=== PATIENT | male | born 1990 | race Hispanic/Latino ===

== ENCOUNTER 2022-09-07 23:09 | Emergency (ER) | payer SELFPAY ==
[2022-09-07 23:20] VITALS: BP 135/77; PULSE 66; RESP 16; TEMP 35.9; O2SAT 99; BMI 30.3
--- NOTE | 2022-09-07 23:33 | ED_ITS ---
HPI - General Adult General Chief complaint: Abdominal Pain Stated complaint: abd pain Time Seen by Provider: 09/07/22 23:26 Source: patient Mode of arrival: Ambulatory Limitations: language barrier History of Present Illness HPI narrative: 35-year-old male. Is [place]-speaking only. Translation line was used to obtain HPI and review of systems. Is here for evaluation left upper quadrant abdominal pain. Has been there for the past 4 days. It is worse with palpation. He has not movement a couple days. He denies any urinary symptoms. Some nausea but no vomiting. No prior surgeries. He did try laxative for the past couple days but only took 1 day without any results. No back pain. Related Data Allergies Allergy/AdvReac Type Severity Reaction Status Date / Time No Known Drug Allergies Allergy Verified 09/07/22 23:20 Review of Systems Constitutional Constitutional: Reports system reviewed and no additional complaints, except as documented Cardiovascular Cardiovascular: Reports system reviewed and no additional complaints, except as documented Respiratory Respiratory: Reports system reviewed and no additional complaints, except as documented Gastrointestinal Gastrointestinal: Reports system reviewed and no additional complaints, except as documented Genitourinary Genitourinary: Reports system reviewed and no additional complaints, except as documented Integumentary/Breasts Skin/Breast: Reports system reviewed and no additional complaints, except as documented Neurologic Neurologic: Reports system reviewed and no additional complaints, except as documented Patient History Medical History Healthy adult Social History Smoking Status: Current some day smoker Smoking Status: Current some day smoker alcohol intake frequency: a few times a week Substance Use Type: does not use Exam Initial Vital Signs Initial Vital Signs: Vital Signs Temperature 96.6 F L 09/07/22 23:20 Pulse Rate 66 09/07/22 23:20 Respiratory Rate 16 09/07/22 23:20 Blood Pressure 135/77 09/07/22 23:20 Pulse Oximetry 99 09/07/22 23:20 Oxygen Delivery Method 09/07/22 23:20 Const General: cooperative and comfortable HENMT Head: normal to inspection and normocephalic Resp Effort & Inspection: normal respiratory effort Auscultation: clear to auscultation bilaterally Cardio Rate: regular rate Rhythm: regular rhythm GI Inspection: normal to inspection Palpation: soft, No firm, No guarding and tender (Left upper quadrant) Back/Spine/Pelvis Back: No CVA tenderness Skin General: no rashes or lesions noted Neuro General: patient alert and patient awake Course Orders Ordered: ED Orders 09/07/22 23:23 Complete Blood Count AUTO DIFF Stat Comprehensive Metabolic Panel Stat Lipase Stat 09/07/22 23:34 XR abdomen 1V Stat Vital Signs Vital signs: Vital Signs - 8 hr 09/07/22 23:20 Temperature 96.6 F L Pulse Rate 66 Respiratory Rate 16 Blood Pressure 135/77 Pulse Oximetry 99 Oxygen Delivery Method Room Air Medical Decision Making Lab Data Lab results reviewed: Yes I reviewed the patient's lab results. Result diagrams: 09/07/22 23:23 09/07/22 23:23 Labs: Lab Results 09/07/22 09/07/22 Range/Units 23:23 23:23 WBC 11.5 H (4.5-11.0) X10^3/uL RBC 5.47 (4.5-5.9) X10^6/uL Hgb 15.1 (13.5-17.5) g/dL Hct 44.8 (41-53) % MCV 81.8 (80-100) fL MCH 27.6 (26-34) PG MCHC 33.8 (30-36) % RDW 13.6 (11.6-14.8) % Plt Count 220 (150-400) X10^3/uL Neut % (Auto) 52.7 (50-75) % Lymph % (Auto) 35.0 (25-40) % [place] % (Auto) 8.3 (3-14) % Eos % (Auto) 3.1 (2-4) % Baso % (Auto) 0.9 (0-2) % Neut # (Auto) 6100 (1497-0706) /uL Lymph # (Auto) 4000 (0077-6604) /uL Ripley # (Auto) 1000 H (0-900) /uL Eos # (Auto) 400 (0-450) /uL Baso # (Auto) 100 (0-100) /uL Sodium 139 (137-145) mmol/L Potassium 3.8 (3.4-5.1) mmol/L Chloride 99 (98-107) mmol/L Carbon Dioxide 29 (22-32) mmol/L BUN 17 (9-20) mg/dL Creatinine 1.03 (0.66-1.25) mg/dL Estimated GFR > 60 (>60) mL/min BUN/Creatinine Ratio 16.5 (6-22) Glucose 104 H (70-100) mg/dL Calcium 9.1 (8.4-10.2) mg/dL Total Bilirubin 0.5 (0.2-1.3) mg/dL AST 28 (17-59) IU/L ALT 45 (<50) IU/L Alkaline Phosphatase 67 (38-126) U/L Total Protein 8.0 (6.3-8.2) g/dL Albumin 4.4 (3.5-5.0) g/dL Globulin 3.6 (1.7-4.1) g/dL Albumin/Globulin Ratio 1.2 (1.0-2.8) Lipase 65 (23-300) U/L Imaging Data Abdominal x-ray: Radiologist's Impression: [address] [address] XRay Report Signed Patient: Omari Aceves MR#: [id number] : 1990 Acct:[id number] Age/Sex: 32 / M Date of Service: 09/07/22 Loc: ED Accession Number: [id number] ?? Procedure: XR abdomen 1V Ordering Provider: Devendra Rosa D.O. PROCEDURE:? XR ABDOMEN 1V ? INDICATIONS:? abdominal pain ? TECHNIQUE:? One view of the abdomen acquired.? ? COMPARISON:? None. ? FINDINGS:? ? Surgical changes and devices:? None.? ? Bowel:? Bowel gas pattern is normal.? ? Soft tissues:? No suspicious abdominal calcifications. ? ? Bones:? No suspicious bony lesions.? ? IMPRESSION:? ? 1. No acute intra-abdominal radiographic abnormality. ? ? Dictated by: Adam Nguyễn M.D. on 09/08/2022 at 0:29 ? ? Approved by: Adam Nguyễn M.D. on 09/08/2022 at 0:30?? MDM Narrative Medical decision making narrative: Labs are unremarkable on the patient does have a benign abdominal exam. Low suspicion for gallbladder pathology based on the lack of changes in his LFTs. Lipase is unremarkable. He has not had a bowel movement the past couple days. Feel that we should hold on a CT scan for now and him use laxatives for the next couple days he was given return precautions if this did not help. He expressed understanding and agreement. Translation line was used. Discharge Plan Departure Patient Disposition: Home Clinical Impression: Abdominal pain Instructions: DI for Abdominal Pain-Adult Activity Restrictions/Additional Instructions: I recommend that you start a laxative called MiraLax. You can purchase this [id number]. You can take it up to 4 times a day. Return to the emergency department for any new or worsening symptoms. Visit Report Forms: Patient Portal/API
--- NOTE | 2022-09-07 23:34 | DI.RAD.S_ITS ---
PROCEDURE: XR ABDOMEN 1V INDICATIONS: abdominal pain TECHNIQUE: One view of the abdomen acquired. COMPARISON: None. FINDINGS: Surgical changes and devices: None. Bowel: Bowel gas pattern is normal. Soft tissues: No suspicious abdominal calcifications. Bones: No suspicious bony lesions. IMPRESSION: 1. No acute intra-abdominal radiographic abnormality. Dictated by: Adam Nguyễn M.D. on 09/08/2022 at 0:29 Approved by: Adam Nguyễn M.D. on 09/08/2022 at 0:30
[2022-09-07 23:42] LABS: Add Manual Diff / Slide Review NO; Basophils Absolute Auto 100 /uL (0-100); Basophils Percent Auto 0.9 % (0-2); Eosinophils Absolute Auto 400 /uL (0-450); Eosinophils Percent Auto 3.1 % (2-4); Hematocrit 44.8 % (41-53); Hemoglobin 15.1 g/dL (13.5-17.5); Lymphocytes Absolute Auto 4000 /uL (1100-4500); Mean Corpuscular HGB Conc 33.8 % (30-36); Mean Corpuscular Hemoglobin 27.6 PG (26-34); Mean Corpuscular Volume 81.8 fL (80-100); Monocytes Absolute Auto 1000 /uL (0-900); Monocytes Percent Auto 8.3 % (3-14); Neutrophils Absolute Auto 6100 /uL (1500-7000); Neutrophils Percent Auto 52.7 % (50-75); Platelet Count 220 X10^3/uL (150-400); Red Blood Cell Count 5.47 X10^6/uL (4.5-5.9); Red Cell Distribution Width 13.6 % (11.6-14.8); White Blood Cell Count 11.5 X10^3/uL (4.5-11.0)
[2022-09-07 23:47] LABS: Alanine Aminotransferase 45 IU/L (<50); Albumin 4.4 g/dL (3.5-5.0); Albumin Globulin Ratio 1.2 (1.0-2.8); Alkaline Phosphatase 67 U/L (38-126); Aspartate Aminotransferase 28 IU/L (17-59); BUN Creatinine Ratio 16.5 (6-22); Bilirubin Total 0.5 mg/dL (0.2-1.3); Blood Urea Nitrogen 17 mg/dL (9-20); Calcium 9.1 mg/dL (8.4-10.2); Carbon Dioxide 29 mmol/L (22-32); Chloride 99 mmol/L (98-107); Estimated Glomerular Filt Rate > 60 mL/min (>60); Globulin 3.6 g/dL (1.7-4.1); Glucose 104 mg/dL (70-100); HEMOLYSIS 19 (0-50); Lipase 65 U/L (23-300); Potassium 3.8 mmol/L (3.4-5.1); Sodium 139 mmol/L (137-145)
== END 2022-09-08 01:13 | disposition home or self-care (01) ==
PROVIDERS: Emergency Provider Emergency Medicine
DX: R10.12 Left upper quadrant pain (principal)
CPT/HCPCS: 36415; 74018; 80053; 83690; 85025; 99283; 99284